=== PATIENT | male | born 1970 | race Caucasian/White ===

== ENCOUNTER 2019-09-22 10:59 | Emergency (ER) | payer OTHER, SELFPAY ==
--- NOTE | ~2019-09-22 | CT_ITS ---
EXAMINATION: CT pelvis w con DATE: 09/22/2019 13:12 INDICATION: Pelvic pain. Fever. TECHNIQUE: Computed tomography (CT) of the pelvis was performed with 100 mm Omnipaque 350 intravenous contrast. Automated exposure control and iterative reconstruction technique were employed. The dose- length product was 287.00 mGy-cm. COMPARISON: None FINDINGS: There are no dilated loops of bowel. There are no pathologically enlarged lymph nodes. Ther e is no free intraperitoneal fluid. There is a 4.9 x 2.0 x 1.6 cm fluid collection in the area of the membranous and bulbar urethra centered to the right of midline. 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 There is mild lumbar spondylosis. IMPRESSION: 1. 4.9 x 2.0 x 1.6 cm fluid collection in the area of the membranous and bulbar urethra centered to t he right of midline, which may be a Cowper gland cyst or abscess. Reviewed, dictated and finalized at location A. ATTENDANT IMPRESSION: 1. 4.9 x 2.0 x 1.6 cm fluid collection in the area of the membranous and bulbar urethra centered to the right of midline, which may be a Cowper gland cyst or abscess.
[2019-09-22 11:17] VITALS: BP 92/58; PULSE 97; RESP 22; TEMP 36.8; O2SAT 98
--- NOTE | 2019-09-22 11:30 | ED.GENADULT ---
HPI - General Adult General Chief complaint: Skin/Abscess/Foreign Body Stated complaint: Fever/possible infection on the groin area History of Present Illness HPI narrative: 49 y.o. with HIV and Hep B, on HIV meds. C/o 10 days of intermittent, occipital headache, green nasal d.c. x 7 days and temp of 102 yesterday AM, 101 this AM. 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 For the past 2 days he's had pain and drainage from this area. He periodically will have pain and drainage but it always resolves on it's own. About 10 years ago he had this area incised and drained. HIV, taking Truvada. Hepatitis B. Dark red urine today. Related Data Home Medications Medication Instructions Recorded Confirmed Unable to Obtain Home Medications 09/22/19 09/22/19 Allergies Allergy/AdvReac Type Severity Reaction Status Date / Time No Known Allergies Allergy Verified 09/22/19 11:15 [facility] Social History Social History Gender identity (if verbalized by the patient): Male Exam : Other: tender, firm peritoneum. Drainage from left perineum. NO redness or warmth. Course Course Emergency Course: Discussed with urology at [place], Dr. Pawan Jones. He has never seen this condition and feels it's highly likely he would have to transfer patient. Recommends eval at [place]. Pt. agrees . 15:00. Vital Signs Vital signs: Vital Signs Temperature 36.8 C 09/22/19 11:17 Pulse Rate 97 09/22/19 11:17 Respiratory Rate 22 H 09/22/19 11:17 Blood Pressure 92/58 L 09/22/19 11:17 Pulse Oximetry 98 09/22/19 11:17 Temperature 36.8 C 09/22/19 11:17 Pulse Rate 97 09/22/19 11:17 Respiratory Rate 22 H 09/22/19 11:17 Blood Pressure 92/58 L 09/22/19 11:17 Pulse Oximetry 98 09/22/19 11:17 Medical Decision Making Vital Signs Vital Signs: Vital Signs Temperature 36.8 C 09/22/19 11:17 Pulse Rate 97 09/22/19 11:17 Respiratory Rate 22 H 09/22/19 11:17 Blood Pressure 92/58 L 09/22/19 11:17 Pulse Oximetry 98 09/22/19 11:17 Temperature 36.8 C 09/22/19 11:17 Pulse Rate 97 09/22/19 11:17 Respiratory Rate 22 H 09/22/19 11:17 Blood Pressure 92/58 L 09/22/19 11:17 Pulse Oximetry 98 09/22/19 11:17 Lab Data Result diagrams: 09/22/19 11:56 09/22/19 11:56 Labs: Lab Results 09/22/19 09/22/19 09/22/19 Range/Units 11:56 11:56 12:07 WBC 8.0 (4.8-10.8) K/mm3 RBC 3.76 L (4.70-6.10) M/mm3 Hgb 13.2 L (14.0-18.0) g/dL Hct 36.7 L (40.0-54.0) % MCV 97.6 (78.0-102.0) fL MCH 35.1 H (27.0-31.0) pg MCHC 36.0 (32.0-36.0) g/dL RDW 17.1 H (11.6-14.4) % Plt Count 42 L (150-420) K/mm3 MPV 12.4 H (8.7-11.0) fl Immature Gran % (Auto) 1.1 H (0.0-0.0) % Neut % (Auto) 76.1 H (50.0-70.0) % Lymph % (Auto) 14.2 L (18.0-42.0) % Louisa % (Auto) 7.5 (2.0-11.0) % Eos % (Auto) 0.8 L (1.0-6.0) % Baso % (Auto) 0.3 (0.0-1.0) % Lymph # (Auto) 1.13 (1.10-4.50) K/mm3 Louisa # (Auto) 0.60 (0.10-0.90) K/mm3 Eos # (Auto) 0.06 (0.02-0.50) K/mm3 Baso # (Auto) 0.02 (0.00-0.10) K/mm3 Abs Immat Gran (auto) 0.09 H (0.00-0.00) K/mm3 Absolute Neuts (auto) 6.1 (1.7-7.2) K/mm3 Absolute Nucleated RBC 0.00 (0.00-0.00) K/mm3 Nucleated RBC % 0.0 (0-0.0) % % Immature Plt Fraction 5.6 (1.0-7.0) % Sodium 135 L (136-145) mmol/L Potassium 3.6 (3.5-5.1) mmol/L Chloride 101 (98-108) mmol/L Carbon Dioxide 25 (21-32) mmol/L Anion Gap 12.6 (7-16) mmol/L BUN 12 (7-18) mg/dL Creatinine 1.26 (0.70-1.30) mg/dL Estim Creat Clear Calc 66 ml/min Estimated GFR > 60 (59 - ) Glucose 116 H (70-99) mg/dL Calculated Osmolality 280 L (285-295) mOsm/kg Calcium 7.9 L (8.5-10.1) mg/dL Total Bilirubin 2.8 H (0.00-1.00) mg/dL AST 167 H (15-37) U/L ALT 93 H (16-63) U/L Alkaline Phosphatase 96 (46-
[2019-09-22 12:25] LABS: Add Urine Microscopic? YES; Appearance Urine Clear (Clear); Bilirubin Urine 2+ (Negative); Blood Urine Negative (Negative); Color Urine Amber (Yellow); Glucose Urine UA Negative (Negative); Ketones Urine Negative (Negative); Leukocyte Esterase Ur Negative (Negative); Nitrate Urine Positive (Negative); Protein Urine Trace (Negative); Specific Grav Ur 1.025 (1.010-1.020)
[2019-09-22 12:27] LABS: Bacteria Urine Trace /hpf; RBC Urine 0-2 /hpf (0-2); Squamous Epithelial Cell Urine Occasional /hpf (Few); WBC Urine 0-3 /hpf (0-3)
[2019-09-22 12:29] LABS: Mucus Urine Heavy /lpf
[2019-09-22 12:36] LABS: Basophils Absolute Auto 0.02 K/mm3 (0.00-0.10); Basophils Percent Auto 0.3 % (0.0-1.0); Eosinophils Absolute Auto 0.06 K/mm3 (0.02-0.50); Eosinophils Percent Auto 0.8 % (1.0-6.0); Hematocrit 36.7 % (40.0-54.0); Hemoglobin 13.2 g/dL (14.0-18.0); Immature Granulocyte Absolute 0.09 K/mm3 (0.00-0.00); Immature Granulocyte Percent A 1.1 % (0.0-0.0); Immature Platelet Fraction Pct 5.6 % (1.0-7.0); Lymphocytes Absolute Auto 1.13 K/mm3 (1.10-4.50); Lymphocytes Percent Auto 14.2 % (18.0-42.0); Mean Corpuscular Hemoglobin 35.1 pg (27.0-31.0); Mean Corpuscular Volume 97.6 fL (78.0-102.0); Mean Platelet Volume 12.4 fl (8.7-11.0); Monocytes Percent Auto 7.5 % (2.0-11.0); Neutrophils Absolute Auto 6.1 K/mm3 (1.7-7.2); Neutrophils Percent Auto 76.1 % (50.0-70.0); Platelet Count Result 42 K/mm3 (150-420); Red Blood Count 3.76 M/mm3 (4.70-6.10); Red Cell Distribution Width 17.1 % (11.6-14.4)
[2019-09-22 12:37] LABS: Alanine Aminotransferase 93 U/L (16-63); Albumin Level 2.2 g/dL (3.4-5.0); Alkaline Phosphatase 96 U/L (46-116); Anion Gap 12.6 mmol/L (7-16); Aspartate Amino Transferase 167 U/L (15-37); Bilirubin,Total 2.8 mg/dL (0.00-1.00); Blood Urea Nitrogen 12 mg/dL (7-18); Calcium 7.9 mg/dL (8.5-10.1); Carbon Dioxide 25 mmol/L (21-32); Chloride 101 mmol/L (98-108); Estimated CRCL calculation 66 ml/min; Estimated Glomerular Filt Rate > 60; Glucose 116 mg/dL (70-99); Osmolality Calculated 280 mOsm/kg (285-295); Potassium 3.6 mmol/L (3.5-5.1); Sodium 135 mmol/L (136-145); Total Protein 8.7 g/dL (6.4-8.2)
--- NOTE | 2019-09-22 14:24 | PC.NURSE ---
Call placed to [facility] house wirer helper Rachael for Dr Willis to speak with hollow tile partition erector urology. Awaiting call back.
--- NOTE | 2019-09-22 15:09 | PC.NURSE ---
Call placed to [place] access line for Dr Willis to speak with Urology carbon furnace operator.
--- NOTE | 2019-09-22 15:23 | PC.NURSE ---
DR. SCANLON SPEAKS WITH [facility]. RE. ADMISSION. [facility] WAS UNABLE TO ACCEPT PT.
[2019-09-22] MEDS: AMOXICILLIN/CLAVULANATE K 875-125 MG TAB 1 TABLET PO (15:38)
[2019-09-22 15:40] VITALS: PULSE 88; TEMP 36.6
[2019-09-25 11:06] LABS: RPR Screen Non-Reactive (Non-Reactive)
== END 2019-09-22 15:43 | disposition short-term general hospital (02) ==
LOC: CHSED 11:04
PROVIDERS: Emergency Provider Family Medicine
DX: E80.6 Other disorders of bilirubin metabolism (principal); D69.6 Thrombocytopenia, unspecified; L02.91 Cutaneous abscess, unspecified
CPT/HCPCS: 36415; 72193; 80053; 81001; 85025; 85055; 86592; 87070; 87077; 87205; 99281; 99284; A9270; Q9965